=== PATIENT | female | born 1965 | race Caucasian/White ===

== ENCOUNTER 2017-07-23 11:09 | Inpatient (IN) | payer OTHER ==
[2017-07-23 12:55] VITALS: BMI 17.9
--- NOTE | 2017-07-23 13:50 | HP ---
COWS - Scale Resting Pulse: 0= [place] 80 or Below Sweatin= Chills/Flushing Restless Observation: 3= Extraneous Movement Pupil Size: 1= Pupils >than Normal Bone or Joint Aches: 2= Severe Diffuse Aches Runny Nose/ Eye Tearin= Runny Nose/Eyes GI Upset > 30mins: 3= Vomiting/Diarrhea Tremor Observation: 2= Slight Tremor Visible Yawning Observation: 2= >3x During Session Anxiety or Irritability: 2=Irritable/Anxious Goose Flesh Skin: 0=Smooth Skin COWS Score: 18 Admission ROS S - [facility] Chief Complaint: i need help to stop using heroin and cocaine Allergies/Adverse Reactions: Allergies Allergy/AdvReac Type Severity Reaction Status Date / Time No Known Allergies Allergy Verified 07/23/17 13:40 History of Present Illness: this 51 years old female with heroin and cocaine dependence,seeking detox, withdrawal symptom,last treatment 01/17/17 to 01/21/17 nicotine dependence hepatitis c treated weight loss anxiety,depression,insomnia longest period of sobriety 2 years - Ebola screening Have you traveled outside of the country in the last 21 days: No Have you had contact with anyone from an Ebola affected area: No Have you been sick,other than usual withdrawal symptoms: No Do you have a fever: No - Review of Systems Constitutional: Chills, Loss of Appetite, Malaise, Night Sweats, Changes in sleep, Weakness, Unintentional Wgt. Loss EENT: reports: Tearing, Hearing Loss, Nose Congestion Respiratory: reports: No Symptoms reported Cardiac: reports: No Symptoms Reported, Palpitations GI: reports: Diarrhea, Nausea, Vomiting, Abdominal cramping : reports: No Symptoms Reported Musculoskeletal: reports: Back Pain, Joint Pain, Muscle Pain, Joint Stiffness Integumentary: reports: Dryness Neuro: reports: Headache, Tremors Endocrine: reports: No Symptoms Reported Hematology: reports: No Symptoms Reported Psychiatric: reports: Judgement Intact, Mood/Affect Appropiate, Orientated x3, Anxious, Depressed Patient History - Patient Medical History Hx Anemia: No Hx Asthma: No Hx Chronic Obstructive Pulmonary Disease (COPD): No Hx Cancer: No Hx Cardiac Disorders: No Hx Congestive Heart Failure: No Hx Hypertension: No Hx Hypercholesterolemia: No Hx Pacemaker: No HX Cerebrovascular Accident: No Hx Seizures: No Hx Dementia: No Hx Diabetes: No Hx Gastrointestinal Disorders: No Hx Liver Disease: No Hx Genitourinary Disorders: No Hx Sexually Transmitted Disorders: No Hx Renal Disease (ESRD): No Hx Thyroid Disease: No Hx Human Immunodeficiency Virus (HIV): No (08/02 negative) Hx Hepatitis C: Yes (treated) Hx Depression: Yes (anxiety,insomnia) Hx Suicide Attempt: Yes (drug over dose) Hx Bipolar Disorder: No Hx Schizophrenia: No Other Medical History: no suicidal,no homicidal,s/p left hip replacement,s/p bilat arthroscopic schilling - Patient Surgical History Past Surgical History: Yes Hx Neurologic Surgery: No Hx Cataract Extraction: No Hx Cardiac Surgery: No Hx Lung Surgery: No Hx Breast Surgery: No Hx Breast Biopsy: No Hx Abdominal Surgery: No Hx Appendectomy: No Hx Cholecystectomy: No Hx Genitourinary Surgery: No Hx Section: No Hx Orthopedic Surgery: Yes (s/p left hip replacement) Hx Hysterectomy: Yes (age 31) Anesthesia Reaction: No - PPD History Previous Implant?: Yes Documented Results: Negative w/proof Implanted On Prior [facility] Admission?: Yes Date: 01/19/17 PPD to be Administered?: No - Reproductive History Patient is a Female of Child Bearing Age (11 -55 yrs old): Yes Last Menstrual Period: 01/17/97 Patient : No - Smoking Cessation Smoking history: Current every day smoker Have you smoked in the past 12 months: Yes Aproximately how many cigarettes per day: 10 Hx Chewing Tobacco Use: No Initiated information on smoking cessation: Yes 'Breaking Loose' booklet given: 07/23/17 - Substance & Tx. History Hx Alcohol Use: No Hx Substance Use: Yes Substance Use Type: Cocaine, Heroin Hx Substance Use Treatment: Yes ([facility] 01/17/17 to 01/21/17) - Substances Abused Heroin Route: Injection Frequency: Daily Amount used: 20 bags Age of first use: 16 Date of Last Use: 07/23/17 Cocaine Route: Injection Frequency: Daily Amount used: $100 Age of first use: 14 Date of Last Use: 07/22/17 Family Disease History - Family Disease History Family Disease History: Diabetes: Father (), Heart Disease: Father, CA: Mother (), Other: Father, Mother, Brother (no contact), Sister (no contact) Admission Physical Exam BHS - Vital Signs Vital Signs: Vital Signs - 24 hr 07/23/17 12:52 Temperature 97.9 F Pulse Rate 68 Respiratory 20 Rate Blood Pressure 130/70 - Physical General Appearance: Yes: Moderate Distress, Tremorous, Irritable, Sweating, Anxious HEENTM: Yes: Normal ENT Inspection, Normocephalic, KRISHAN, Pharynx Normal Respiratory: Yes: Lungs Clear, Normal Breath Sounds, No Respiratory Distress Neck: Yes: Within Normal Limits, Supple, Trachea in good position Breast: Yes: Within Normal Limits Cardiology: Yes: Within Normal Limits, Regular Rhythm, Regular Rate, S1, S2 Abdominal: Yes: Within Normal Limits, Normal Bowel Sounds, Flat, Soft Genitourinary: Yes: Within Normal Limits Back: Yes: Muscle Spasm Musculoskeletal: Yes: full range of Motion, Back pain, Muscle Pain Extremities: Yes: Tremors Neurological: Yes: 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 II-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 NML intact, Fully Oriented, Alert, Motor Strength 5/5 Integumentary: Yes: Dry, Track Clarke (multiple area of both forearmas with cellulitis) Lymphatic: Yes: Within Normal Limits - Diagnostic (1) Opioid dependence with withdrawal Current Visit: Yes Status: Acute (2) Cocaine dependence Current Visit: Yes Status: Acute (3) Nicotine dependence Current Visit: No Status: Chronic Qualifiers: Nicotine product type: cigarettes Substance use status: uncomplicated Qualified Code(s): F17.210 - Nicotine dependence, cigarettes, uncomplicated (4) IV drug user Current Visit: Yes Status: Acute (5) Weight loss Current Visit: No Status: Acute (6) Status post left hip replacement Current Visit: Yes Status: Acute (7) S/P arthroscopic knee surgery Current Visit: Yes Status: Acute (8) History of hysterectomy for cancer Current Visit: Yes Status: Acute (9) Insomnia secondary to depression with anxiety Current Visit: Yes Status: Acute Cleared for Admission [facility] - Detox or Rehab [facility] Level of Care: Medically Managed Detox Regimen/Protocol: Methadone [facility] Breath Alcohol Content Breath Alcohol Content: 0 Urine Pregancy Test - Result Urine Test Results: Negative- NO Line Present Urine Drug Screen - Results Drug Screen Negative: No Urine Drug Screen Results: AVE-Cocaine, OPI-Opiates
[2017-07-23] MEDS ORDERED: MAGNESIUM HYDROX 2400MG/30ML ORAL SUSPENSION 30 ML CUP PO PRN (14:14)
[2017-07-23] MEDS ORDERED: MAGNESIUM CITRATE 300 ML BOTTLE PO PRN (14:14)
[2017-07-23] MEDS ORDERED: IBUPROFEN 400 MG TABLET (FP) PO PRN (14:14)
[2017-07-23] MEDS ORDERED: guaiFENesin/D-METHORPHAN HB 10 ML UNIT-DOSE CUPS PO PRN (14:14)
[2017-07-23] MEDS ORDERED: MENTHOL/PHENOL 1 EACH UD MM PRN (14:14)
[2017-07-23] MEDS ORDERED: MAG HYDROX/AL HYDROX/SIMETH 30 ML UNIT-DOSE CUP PO PRN (14:14)
[2017-07-23] MEDS ORDERED: P-EPHED 60MG/TRIPROLIDI 2.5MG TABLET PO PRN (14:14)
[2017-07-23] MEDS ORDERED: LOPERAMIDE HCL 2 MG CAPSULE PO PRN (14:14)
[2017-07-23] MEDS ORDERED: ACETAMINOPHEN 325 MG TABLET (FP) PO PRN (14:14)
[2017-07-23] MEDS ORDERED: hydrOXYzine PAMOATE 25 MG CAPSULE (FP) PO PRN (14:14)
[2017-07-23] MEDS ORDERED: METHADONE HCL 10 MG TABLET (FOR DETOX USE ONLY) PO ONE ×2 (15:30→23:00)
[2017-07-23] MEDS: diazePAM 5 MG TABLET PO PRN ×2 (15:53→22:17)
[2017-07-23] MEDS: CEPHALEXIN MONOHYDRATE 500 MG CAPSULE (UD) PO SCH ×2 (17:32→23:19)
[2017-07-23] MEDS ORDERED: MELATONIN 5 MG TABLETS PO PRN (22:00)
[2017-07-23] MEDS: BACITRACIN 0.9 GM PACKET TP SCH (22:16)
[2017-07-23] MEDS: cloNIDine HCL 0.1 MG TABLET PO SCH (22:16)
[2017-07-23] MEDS: THIAMINE HCL 100 MG TABLET (FP) PO SCH (22:17)
[2017-07-23] MEDS: CYCLOBENZAPRINE HCL 10 MG TABLET (FP) PO PRN (22:17)
[2017-07-24] MEDS: CEPHALEXIN MONOHYDRATE 500 MG CAPSULE (UD) PO SCH ×4 (05:58→23:07)
[2017-07-24] MEDS: diazePAM 5 MG TABLET PO PRN ×3 (05:58→19:56)
[2017-07-24] MEDS ORDERED: VARENICLINE TARTRATE 0.5 MG TAB PO ONE (10:00)
[2017-07-24] MEDS ORDERED: METHADONE HCL 10 MG TABLET (FOR DETOX USE ONLY) PO ONE (10:00)
--- NOTE | 2017-07-24 10:13 | PN ---
BHS COWS - Scale Resting Pulse: 1= [place] 81-100 Sweatin= Chills/Flushing Restless Observation: 1= Difficult to Sit Still Pupil Size: 1= Pupils >than Normal Bone or Joint Aches: 2= Severe Diffuse Aches Runny Nose/ Eye Tearin= Runny Nose/Eyes GI Upset > 30mins: 2= Nausea/Diarrhea Tremor Observation of Outstretched Hands: 2= Slight Tremor Visible Yawning Observation: 2= >3x During Session Anxiety or Irritability: 2=Irritable/Anxious Goose Flesh Skin: 0=Smooth Skin COWS Score: 16 BHS Progress Note (SOAP) Subjective: joint pain body ache sweat tremor restlessness anxiety Objective: 07/24/17 10:13 Vital Signs Temperature 97.9 F 07/24/17 09:20 Pulse Rate 86 07/24/17 09:20 Respiratory Rate 18 07/24/17 09:20 Blood Pressure 125/74 07/24/17 09:20 O2 Sat by Pulse Oximetry (%) lab not available at this time Assessment: 07/24/17 10:14 withdrawal sx Plan: continue detox
[2017-07-24 10:34] LABS: HEMATOCRIT 31.4 % (32.4-45.2); HEMOGLOBIN 10.6 GM/dL (10.7-15.3); MCH 29.6 pg (25.7-33.7); MCHC 33.8 g/dl (32.0-36.0); MEAN CELL VOLUME 87.7 fl (80-96); MEAN PLT VOLUME 8.7 fl (7.5-11.1); PLATELET COUNT 238 K/MM3 (134-434); RBC 3.57 M/mm3 (3.60-5.2); RDW 13.2 % (11.6-15.6); WHITE BLOOD COUNT 4.4 K/mm3 (4.0-10.0)
[2017-07-24] MEDS: PRENATAL VITAMINS W/ FOLIC ACID TABLET (FP) PO SCH (10:43)
[2017-07-24] MEDS: BACITRACIN 0.9 GM PACKET TP SCH ×2 (10:43→22:27)
[2017-07-24] MEDS: cloNIDine HCL 0.1 MG TABLET PO SCH ×2 (10:43→22:27)
--- NOTE | 2017-07-24 11:34 | CONSULT ---
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 Smoking history: Current every day smoker. Have you smoked in the past 12 months: Yes. Aproximately how many cigarettes per day: 10. Hx Chewing Tobacco Use: No. Initiated information on smoking cessation: Yes. 'Breaking Loose' booklet given: 07/23/17. - Substance & Tx. History. Hx Alcohol Use: No. Hx Substance Use: Yes. Substance Use Type : Cocaine, Heroin. Hx Substance Use Treatment: Yes ([facility] 01/17/17 to 01/21/17) . - Substances Abused. Heroin. Route: Injection. Frequency: Daily. Amount used: 20 bags. Age of first use: 16. Date of Last Use: 07/23/17. Cocaine. Route: Injection. Frequency: Daily. Amount used: $100. Age of first use: 14. Date of Last Use: 07/22/17 Medical History: Denies any signifivant medical issues. As per chart Left Hip Replacement s/p Psychiatric History: Patient reports anixety and deprerssion. reports [facility]. Reports takijg prior to admission: Ambien 10mg po qhs'. Seroquerlm 150mg poqd Physical/Sexual Abuse/Trauma History: Denies Additional Comment: Ambien 10mg po qhs'. Seroquerlm 150mg poqd Mental Status Exam - Mental Status Exam Alert and Oriented to: Person Cognitive Function: Fair Patient Appearance: Unkempt Mood: Sad Affect: Flat Patient Behavior: Sedated Speech Pattern: Delayed Voice Loudness: Mildly Soft/Quiet Thought Process: Circumstantial Thought Disorder: Being Controlled Hallucinations: Denies Suicidal Ideation: Denies Homicidal Ideation: Denies Insight/Judgement: Fair Sleep: Difficulty falling asleep Appetite: Weight loss Muscle strength/Tone: Mild Hypotonicity Gait/Station: Shuffling Additional Comments: Ambien 10mg po qhs'. Seroquerlm 150mg poqd Psychiatric Findings - Problem List ([place] 1, 2,3) (1) Cocaine dependence Current Visit: Yes Status: Acute (2) IV drug user Current Visit: Yes Status: Acute (3) Opioid dependence with withdrawal Current Visit: Yes Status: Acute (4) Weight loss Current Visit: No Status: Acute (5) Cocaine dependence, uncomplicated Current Visit: No Status: Chronic (6) Methadone maintenance therapy patient Current Visit: No Status: Chronic Comment: 130 mg verification pending (7) Nicotine dependence Current Visit: No Status: Chronic Qualifiers: Nicotine product type: cigarettes Substance use status: uncomplicated Qualified Code(s): F17.210 - Nicotine dependence, cigarettes, uncomplicated - Initial Treatment Plan Initial Treatment Plan: Ambien 10mg po qhs'. Seroquerlm 150mg poqd
[2017-07-24 11:35] LABS: ALBUMIN 3.4 g/dl (3.4-5.0); ANION GAP 8 (8-16); BLOOD UREA NITROGEN 17 mg/dL (7-18); CALCIUM 8.3 mg/dL (8.5-10.1); CHLORIDE 107 mmol/L (98-107); CO2 28 mmol/L (21-32); GLUCOSE,RANDOM 149 mg/dL (74-106); SODIUM 143 mmol/L (136-145)
[2017-07-24 11:41] LABS: ALK PHOS 83 U/L (45-117); BILIRUBIN,TOTAL 0.2 mg/dL (0.2-1.0); CREATININE 0.8 mg/dL (0.55-1.02); SGOT/AST 15 U/L (15-37); SGPT/ALT 15 U/L (12-78)
[2017-07-24] MEDS: QUEtiapine FUMARATE 50 MG TABLET PO SCH (13:10)
--- NOTE | 2017-07-24 14:00 | EKG ---
Test Reason : Blood Pressure : / mmHG Vent. Rate : 061 BPM Atrial Rate : 061 BPM P-R Int : 134 ms QRS Dur : 080 ms QT Int : 458 ms P-R-T Axes : 062 070 064 degrees QTc Int : 461 ms NORMAL SINUS RHYTHM NORMAL ECG WHEN COMPARED WITH ECG OF 17-JAN-2017 21:32, VT INTERVAL HAS INCREASED Confirmed by JAIRO OLIVAREZ, ALISHA ([id number]) on 07/24/2017 1:59:57 PM Referred By: Confirmed By:ALISHA GILL MD
[2017-07-24] MEDS: ZOLPIDEM TARTRATE 10 MG TABLET (PARK CARE ONLY) PO PRN (22:27)
[2017-07-24] MEDS: CYCLOBENZAPRINE HCL 10 MG TABLET (FP) PO PRN (22:27)
[2017-07-24] MEDS: THIAMINE HCL 100 MG TABLET (FP) PO SCH (22:27)
[2017-07-25] MEDS: diazePAM 5 MG TABLET PO PRN ×5 (00:39→22:17)
[2017-07-25] MEDS: CEPHALEXIN MONOHYDRATE 500 MG CAPSULE (UD) PO SCH ×4 (06:03→23:01)
[2017-07-25] MEDS ORDERED: METHADONE HCL 5 MG TABLET (FOR DETOX USE ONLY) PO ONE (10:00)
[2017-07-25] MEDS: QUEtiapine FUMARATE 50 MG TABLET PO SCH (10:25)
[2017-07-25] MEDS: cloNIDine HCL 0.1 MG TABLET PO SCH ×2 (10:25→22:18)
[2017-07-25] MEDS: BACITRACIN 0.9 GM PACKET TP SCH ×2 (10:25→22:18)
[2017-07-25] MEDS: VARENICLINE TARTRATE 0.5 MG TAB PO SCH ×2 (10:25→22:19)
[2017-07-25] MEDS: PRENATAL VITAMINS W/ FOLIC ACID TABLET (FP) PO SCH (10:25)
--- NOTE | 2017-07-25 13:05 | PN ---
S COWS - Scale Resting Pulse: 0= [place] 80 or Below Sweatin= Chills/Flushing Restless Observation: 1= Difficult to Sit Still Pupil Size: 1= Pupils >than Normal Bone or Joint Aches: 1= Mild Discomfort Runny Nose/ Eye Tearin= Nasal Congestion GI Upset > 30mins: 1= Stomach Cramp Tremor Observation of Outstretched Hands: 2= Slight Tremor Visible Yawning Observation: 2= >3x During Session Anxiety or Irritability: 2=Irritable/Anxious Goose Flesh Skin: 0=Smooth Skin COWS Score: 12 S Progress Note (SOAP) Subjective: feeling good today that detox regimen works well able to sleep throughout the night mild tremor less sweat prefer to begin recovery process earlier Objective: 07/25/17 13:04 Vital Signs Temperature 98.2 F 07/25/17 09:33 Pulse Rate 88 07/25/17 09:33 Respiratory Rate 16 07/25/17 09:33 Blood Pressure 105/69 07/25/17 09:33 O2 Sat by Pulse Oximetry (%) Laboratory Last Values WBC 4.4 K/mm3 (4.0-10.0) 07/24/17 06:00 RBC 3.57 M/mm3 (3.60-5.2) L 07/24/17 06:00 Hgb 10.6 GM/dL (10.7-15.3) L D 07/24/17 06:00 Hct 31.4 % (32.4-45.2) L 07/24/17 06:00 MCV 87.7 fl (80-96) 07/24/17 06:00 MCH 29.6 pg (25.7-33.7) 07/24/17 06:00 MCHC 33.8 g/dl (32.0-36.0) 07/24/17 06:00 RDW 13.2 % (11.6-15.6) 07/24/17 06:00 Plt Count 238 K/MM3 (134-434) 07/24/17 06:00 MPV 8.7 fl (7.5-11.1) D 07/24/17 06:00 Sodium 143 mmol/L (136-145) 07/24/17 06:00 Potassium 4.0 mmol/L (3.5-5.1) 07/24/17 06:00 Chloride 107 mmol/L (98-107) 07/24/17 06:00 Carbon Dioxide 28 mmol/L (21-32) 07/24/17 06:00 Anion Gap 8 (8-16) 07/24/17 06:00 BUN 17 mg/dL (7-18) 07/24/17 06:00 Creatinine 0.8 mg/dL (0.55-1.02) 07/24/17 06:00 Creat Clearance w eGFR > 60 (>60) 07/24/17 06:00 Random Glucose 149 mg/dL (74-106) H 07/24/17 06:00 Calcium 8.3 mg/dL (8.5-10.1) L 07/24/17 06:00 Total Bilirubin 0.2 mg/dL (0.2-1.0) 07/24/17 06:00 AST 15 U/L (15-37) 07/24/17 06:00 ALT 15 U/L (12-78) 07/24/17 06:00 Alkaline Phosphatase 83 U/L (45-117) 07/24/17 06:00 Total Protein 7.0 g/dl (6.4-8.2) 07/24/17 06:00 Albumin 3.4 g/dl (3.4-5.0) 07/24/17 06:00 RPR Titer Nonreactive (NONREACTIVE) 07/24/17 06:00 lab noted 07/25/17 13:05 alert oriented x 3 no acute distress Assessment: 07/25/17 13:04 withdrawal sx 07/25/17 13:05 modify opioid detox regimen Plan: continue detox tailored opioid detox regimen as per patient preference
[2017-07-25] MEDS: CYCLOBENZAPRINE HCL 10 MG TABLET (FP) PO PRN (22:17)
[2017-07-25] MEDS: THIAMINE HCL 100 MG TABLET (FP) PO SCH (22:17)
[2017-07-25] MEDS: ZOLPIDEM TARTRATE 10 MG TABLET (PARK CARE ONLY) PO PRN (22:18)
[2017-07-26] MEDS: diazePAM 5 MG TABLET PO PRN (02:42)
[2017-07-26] MEDS: CEPHALEXIN MONOHYDRATE 500 MG CAPSULE (UD) PO SCH (05:51)
[2017-07-26 09:27] VITALS: BP 130/77; PULSE 104; TEMP 95.8
[2017-07-26] MEDS ORDERED: METHADONE HCL 10 MG TABLET (FOR DETOX USE ONLY) PO ONE (10:00)
[2017-07-26] MEDS ORDERED: METHADONE HCL 5 MG TABLET (FOR DETOX USE ONLY) PO ONE (10:00)
[2017-07-26] MEDS: BACITRACIN 0.9 GM PACKET TP SCH (11:19)
[2017-07-26] MEDS: cloNIDine HCL 0.1 MG TABLET PO SCH (11:19)
[2017-07-26] MEDS: QUEtiapine FUMARATE 50 MG TABLET PO SCH (11:20)
[2017-07-26] MEDS: PRENATAL VITAMINS W/ FOLIC ACID TABLET (FP) PO SCH (11:20)
[2017-07-26] MEDS: VARENICLINE TARTRATE 0.5 MG TAB PO SCH (11:20)
--- NOTE | 2017-07-26 12:26 | DS ---
[facility] Detox Discharge Summary Admission Date: 07/23/17 Discharge Date: 07/26/17 - History Present History: Opioid Dependence Additional Comments: 51 years old female admitted 07/23/17 for opioid withdrawal sx insists to terminate the detox regimen wants to leave the detox facility alert oriented x 3 no acute distress health teaching on addiction and recovery process - Physical Exam Results Vital Signs: Vital Signs Temperature 95.8 F L 07/26/17 09:26 Pulse Rate 104 H 07/26/17 09:26 Respiratory Rate 18 07/26/17 09:26 Blood Pressure 130/77 07/26/17 09:26 O2 Sat by Pulse Oximetry (%) Pertinent Admission Physical Exam Findings: withdrawal sx Vital Signs Temperature 95.8 F L 07/26/17 09:26 Pulse Rate 104 H 07/26/17 09:26 Respiratory Rate 18 07/26/17 09:26 Blood Pressure 130/77 07/26/17 09:26 O2 Sat by Pulse Oximetry (%) Laboratory Last Values WBC 4.4 K/mm3 (4.0-10.0) 07/24/17 06:00 RBC 3.57 M/mm3 (3.60-5.2) L 07/24/17 06:00 Hgb 10.6 GM/dL (10.7-15.3) L D 07/24/17 06:00 Hct 31.4 % (32.4-45.2) L 07/24/17 06:00 MCV 87.7 fl (80-96) 07/24/17 06:00 MCH 29.6 pg (25.7-33.7) 07/24/17 06:00 MCHC 33.8 g/dl (32.0-36.0) 07/24/17 06:00 RDW 13.2 % (11.6-15.6) 07/24/17 06:00 Plt Count 238 K/MM3 (134-434) 07/24/17 06:00 MPV 8.7 fl (7.5-11.1) D 07/24/17 06:00 Sodium 143 mmol/L (136-145) 07/24/17 06:00 Potassium 4.0 mmol/L (3.5-5.1) 07/24/17 06:00 Chloride 107 mmol/L (98-107) 07/24/17 06:00 Carbon Dioxide 28 mmol/L (21-32) 07/24/17 06:00 Anion Gap 8 (8-16) 07/24/17 06:00 BUN 17 mg/dL (7-18) 07/24/17 06:00 Creatinine 0.8 mg/dL (0.55-1.02) 07/24/17 06:00 Creat Clearance w eGFR > 60 (>60) 07/24/17 06:00 Random Glucose 149 mg/dL (74-106) H 07/24/17 06:00 Calcium 8.3 mg/dL (8.5-10.1) L 07/24/17 06:00 Total Bilirubin 0.2 mg/dL (0.2-1.0) 07/24/17 06:00 AST 15 U/L (15-37) 07/24/17 06:00 ALT 15 U/L (12-78) 07/24/17 06:00 Alkaline Phosphatase 83 U/L (45-117) 07/24/17 06:00 Total Protein 7.0 g/dl (6.4-8.2) 07/24/17 06:00 Albumin 3.4 g/dl (3.4-5.0) 07/24/17 06:00 RPR Titer Nonreactive (NONREACTIVE) 07/24/17 06:00 lab noted - Treatment Hospital Course: Detox Protocol Followed, Responded well Patient has Accepted a Rehab Referral to: community self help groups - Medication Discharge Medications: Ambulatory Orders Varenicline Tartrate [Chantix -] 0.5 mg PO DAILY 07/23/17 Zolpidem Tartrate [Ambien] 10 mg PO HS 07/23/17 Quetiapine Fumarate "Xr" [Seroquel Xr -] 150 mg PO DAILY #30 tab 07/24/17 - Diagnosis (1) Alcohol dependence with uncomplicated withdrawal Status: Acute - AMA Did Patient Leave Against Medical Advice: Yes
[2017-07-27] MEDS ORDERED: METHADONE HCL 10 MG TABLET (FOR DETOX USE ONLY) PO ONE ×2 (06:00→10:00)
[2017-07-28] MEDS ORDERED: METHADONE HCL 5 MG TABLET (FOR DETOX USE ONLY) PO ONE (06:00)
== END 2017-07-26 10:15 | disposition left against medical advice (07) | DRG 770 ==
LOC: YASAS 11:09 → Y6N 14:59
PROVIDERS: ADMIT Surgery; ATTEND Surgery
PROC: HZ2ZZZZ Detoxification Services for Substance Abuse Treatment (ICD-10-PCS; principal; 2017-07-23)
DX: F11.23 Opioid dependence with withdrawal (principal); F10.230 Alcohol dependence with withdrawal, uncomplicated; F14.20 Cocaine dependence, uncomplicated; F17.210 Nicotine dependence, cigarettes, uncomplicated; F51.05 Insomnia due to other mental disorder; F32.9 Major depressive disorder, single episode, unspecified; R63.4 Abnormal weight loss; Z68.1 Body mass index [BMI] 19.9 or less, adult; Z96.642 Presence of left artificial hip joint; Z91.5 Personal history of self-harm
CPT/HCPCS: 36415; 80053; 85027; 86593; 93005; 93010; J0735

== ENCOUNTER 2018-08-25 12:25 | Inpatient (IN) | payer OTHER ==
[2018-08-25 14:58] VITALS: BMI 17.7
--- NOTE | 2018-08-25 17:08 | HP ---
"COWS - Scale Resting Pulse: 0= IN 80 or Below Sweatin=Flushed/Facial Moisture Restless Observation: 3= Extraneous Movement Pupil Size: 2= Moderately Dilated (Pupils = 4 mm) Bone or Joint Aches: 0= None Runny Nose/ Eye Tearin= Nasal Congestion GI Upset > 30mins: 2= Nausea/Diarrhea Tremor Observation: 2= Slight Tremor Visible Yawning Observation: 0= None Anxiety or Irritability: 2=Irritable/Anxious Goose Flesh Skin: 0=Smooth Skin COWS Score: 14 CIWA Score Nausea/Vomitin Muscle Tremors: 3 Anxiety: 3 Agitation: 3 Paroxysmal Sweats: 3 (Increased facial moisture) Orientation: 0-Oriented Tacttile Disturbances: 0-None Auditory Disturbances: 0-None Visual Disturbances: 0-None Headache: 0-None Present CIWA-Ar Total Score: 15 - Admission Criteria [facility] Guidelines: Admission for Medically Managed Detox: Requires at least one of the followin. CIWA greater than 12 2. Seizures within the past 24 hours 3. Delirium tremens within the past 24 hours 4. Hallucinations within the past 24 hours 5. Acute intervention needed for co occurring medical disorder 6. Acute intervention needed for co occurring psychiatric disorder 7. Severe withdrawal that cannot be handled at a lower level of care (continued vomiting, continued diarrhea, abnormal vital signs) requiring intravenous medication and/or fluids 8. Patient presents the following: CIWA greater than 12 Admission Criteria Met: Admission criteria met Admission [facility] Chief Complaint: Having withdrawal from alcohol and heroin Allergies/Adverse Reactions: Allergies Allergy/AdvReac Type Severity Reaction Status Date / Time No Known Allergies Allergy Verified 08/25/18 14:45 History of Present Illness: 52 yor with heroin and alcohol withdrawal presents for detox. Heroin use began at age 15. States current use x 1 year. IV. Denies sharing needles or works. Alcohol use began at age 15. States dfriks about 1 pint and 3 beers about 3x/ wk. Cocaine use began at age 15. IVDU Denies blackouts, overdoses. Has a Narcan Kit @ home. Wants to be discharged by Saturday. Given the amount of substance use and the presence of cellulits, the recommendation is that patient stay at least 6 days. PMHx: Denies significant PMH EKG @ [facility]: 04/05/17 wnl. MHHx: Anxious, Insomnia, Depression. Denies thoughts of harming self or others. On meds - Seroquel Longest length of sobriety 2 years. Search Terms: Sofía Dejesus, 1965 Search Date: 08/25/2018 05:05:31 PM The Drug Utilization Report below displays all of the controlled substance prescriptions, if any, that your patient has filled in the last twelve months. The information displayed on this report is compiled from pharmacy submissions to the Department, and accurately reflects the information as submitted by the pharmacies. This report was requested by: Sarah Beth Chang | Reference #: [id number] There are no results for the search terms that you entered. Search Terms: Sofía Dejesus, 1965 Search Date: 08/25/2018 05:08:35 PM States Searched: [place], [place], [place], [place], [place], [place], [place], [place], [place] The Drug Utilization Report below displays the controlled substance prescriptions, if any, that were dispensed in the indicated state(s). The information displayed on this report is compiled from requests submitted to other states' PMPs, and accurately reflects the information as returned by them. Blank saleh indicate data not provided by other state. This report was requested by: Sarah Beth Chang | Reference #: [id number] Exam Limitations: No Limitations - Ebola screening Have you traveled outside of the country in the last 21 days: No (N) Have you had contact with anyone from an Ebola affected area: No Have you been sick,other than usual withdrawal symptoms: Yes (Denies recent exposure to measles) Do you have a fever: No - Review of Systems Constitutional: Chills, Diaphoresis (Increased facial moisture), Changes in sleep (Diffculty falling and staying asleep) EENT: reports: Blurred Vision, Hearing Loss (Decreased hearing in both ears) Respiratory: reports: No Symptoms reported Cardiac: reports: No Symptoms Reported GI: reports: Nausea : reports: No Symptoms Reported Musculoskeletal: denies: No Symptoms Reported (r/t) Integumentary: reports: Lesions (on arms and legs from shooting cocaine) Neuro: reports: Tremors Endocrine: reports: No Symptoms Reported Hematology: reports: Anemia (Iron Deficiencey) Psychiatric: reports: Judgement Intact, Orientated x3, Agitated, Anxious, Depressed (Denies thoughts of harming self or others) Patient History - Patient Medical History Hx Anemia: No Hx Asthma: No Hx Chronic Obstructive Pulmonary Disease (COPD): No Hx Cancer: No Hx Cardiac Disorders: No Hx Congestive Heart Failure: No Hx Hypertension: No Hx Hypercholesterolemia: No Hx Pacemaker: No HX Cerebrovascular Accident: No Hx Seizures: No Hx Dementia: No Hx Diabetes: No Hx Gastrointestinal Disorders: No Hx Liver Disease: No Hx Genitourinary Disorders: No Hx Sexually Transmitted Disorders: No Hx Renal Disease (ESRD): No Hx Thyroid Disease: No Hx Human Immunodeficiency Virus (HIV): No (08/02 negative) Hx Hepatitis C: Yes (treated) Hx Depression: Yes (anxiety,insomnia) Hx Suicide Attempt: Yes (drug over dose) Hx Bipolar Disorder: No Hx Schizophrenia: No - Patient Surgical History Past Surgical History: Yes Hx Neurologic Surgery: No Hx Cataract Extraction: No Hx Cardiac Surgery: No Hx Lung Surgery: No Hx Breast Surgery: No Hx Breast Biopsy: No Hx Abdominal Surgery: No Hx Appendectomy: No Hx Cholecystectomy: No Hx Genitourinary Surgery: No Hx Section: No Hx Orthopedic Surgery: Yes (s/p left hip replacement) Hx Hysterectomy: Yes (age 31 cancer of cervix ) Other Surgical History: bilateral arthroscopy both knees Anesthesia Reaction: No - PPD History Previous Implant?: Yes Documented Results: Negative w/proof Implanted On Prior R Admission?: Yes Date: 01/19/17 Results: negative PPD to be Administered?: Yes - Reproductive History Last Menstrual Period: 01/17/97 - Smoking Cessation Smoking history: Current every day smoker Have you smoked in the past 12 months: Yes Aproximately how many cigarettes per day: 10 Hx Chewing Tobacco Use: No Initiated information on smoking cessation: Yes 'Breaking Loose' booklet given: 08/25/18 - Substance & Tx. History Hx Alcohol Use: Yes Hx Substance Use: Yes Substance Use Type: Alcohol, Heroin, Opiates Hx Substance Use Treatment: Yes (detox, rehab) - Substances abused Heroin Substance route: Injection Frequency: Daily Amount used: 25 bags/day Age of first use: 15 Date of last use: 08/25/18 Cocaine Substance route: Injection Frequency: Daily Amount used: 25 bags /day Age of first use: 15 Date of last use: 08/25/18 Alcohol Substance route: Oral Frequency: 3-6 times per week Amount used: 3 12 ounces of beer daily Age of first use: 15 Date of last use: 08/24/18 Family Disease History - Family Disease History Family Disease History: Diabetes: Father (), Heart Disease: Father, CA: Mother (), Other: Father, Mother, Brother (no contact), Sister (no contact) Admission Physical Exam [facility] - Vital Signs Vital Signs: Vital Signs - 24 hr 08/25/18 14:50 Temperature 97.9 F Pulse Rate 70 Respiratory 18 Rate Blood Pressure 110/70 - Physical General Appearance: Yes: Mild Distress, Thin, Tremorous (Slight tremors), Sweating (Increased facial moisture), Anxious HEENTM: Yes: EOMI, Hearing grossly Normal, Normocephalic, Normal Voice, KRISHAN ( Pupils = 4 mm), Pharynx Normal, Nasal Congestion, Rhinorrhea Respiratory: Yes: Lungs Clear, Normal Breath Sounds, No Respiratory Distress Neck: Yes: No masses,lesions,Nodules, Supple Breast: Yes: Breast Exam Deferred Cardiology: Yes: Regular Rhythm, Regular Rate, S1, S2 Abdominal: Yes: Non Tender, Flat, Soft, Increased Bowel Sounds Genitourinary: Yes: Within Normal Limits Back: Yes: Normal Inspection Musculoskeletal: Yes: full range of Motion, Gait Steady Extremities: Yes: Normal Capillary Refill, Normal Range of Motion, Tremors ( Mild tremors) Neurological: Yes: chemical dependency therapist II-XII NML intact, Fully Oriented, Alert, Motor Strength 5/5 Integumentary: Yes: Normal Color, Warm, Track Clarke (Many olOld and new track clarke arms and legs. Several track julian sites on arms and legs w/ increased warmth, erythema and tenderness.), Other (Area of induration 10 cm x 8 cm (R) thigh area, w/ increased warmth, erythema, and tenderness.) Lymphatic: Yes: Within Normal Limits - Diagnostic (1) Underweight Current Visit: Yes Status: Chronic (2) Alcohol dependence with uncomplicated withdrawal Current Visit: Yes Status: Acute (3) Cellulitis Current Visit: Yes Status: Acute Qualifiers: Site of cellulitis: unspecified site Qualified Code(s): L03.90 - Cellulitis , unspecified (4) Cocaine dependence Current Visit: Yes Status: Chronic Qualifiers: Substance use status: uncomplicated Qualified Code(s): F14.20 - Cocaine dependence, uncomplicated (5) IV drug user Current Visit: Yes Status: Chronic (6) Nicotine dependence Current Visit: Yes Status: Chronic Qualifiers: Nicotine product type: cigarettes Substance use status: in withdrawal Qualified Code(s): F17.213 - Nicotine dependence, cigarettes, with withdrawal (7) Opioid dependence with withdrawal Current Visit: Yes Status: Acute Cleared for Admission [facility] - Detox or Rehab [facility] Level of Care: Medically Managed Detox Regimen/Protocol: Methadone/Librium Claeared for Rehab Admission: No Inpatient Rehab Admission - Rehab Decision to Admit Inpatient rehab admission?: No"
[2018-08-25] MEDS ORDERED: cloNIDine HCL 0.1 MG TABLET PO PRN (17:37)
[2018-08-25] MEDS ORDERED: NALOXONE HCL 0.4 MG/ML VIAL IVPUSH PRN (17:37)
[2018-08-25] MEDS ORDERED: MAGNESIUM HYDROX 2400MG/30ML ORAL SUSPENSION 30 ML CUP PO PRN (17:41)
[2018-08-25] MEDS ORDERED: MAGNESIUM CITRATE 300 ML BOTTLE PO PRN (17:41)
[2018-08-25] MEDS ORDERED: MELATONIN 5 MG TABLETS PO PRN (17:41)
[2018-08-25] MEDS ORDERED: MENTHOL/PHENOL 1 EACH UD MM PRN (17:41)
[2018-08-25] MEDS ORDERED: IBUPROFEN 400 MG TABLET (FP) PO PRN (17:41)
[2018-08-25] MEDS ORDERED: chlordiazePOXIDE HCL 10 MG CAPSULE PO PRN (17:41)
[2018-08-25] MEDS ORDERED: ACETAMINOPHEN 325 MG TABLET (FP) PO PRN ×2 (17:41)
[2018-08-25] MEDS ORDERED: BISMUTH SUBSALICYLATE 524 MG/30 ML UD PO PRN (17:41)
[2018-08-25] MEDS ORDERED: MAG HYDROX/AL HYDROX/SIMETH 30 ML UNIT-DOSE CUP PO PRN (17:41)
[2018-08-25] MEDS ORDERED: NICOTINE POLACRILEX 2 MG GUM BUC PRN (17:41)
[2018-08-25] MEDS ORDERED: METHADONE HCL 10 MG TABLET (FOR DETOX USE ONLY) PO ONE ×2 (18:00→23:00)
[2018-08-25] MEDS: CEPHALEXIN MONOHYDRATE 500 MG CAPSULE (UD) PO SCH (19:24)
[2018-08-25] MEDS: chlordiazePOXIDE HCL 25 MG CAPSULE PO SCH (22:43)
[2018-08-25] MEDS: THIAMINE HCL 100 MG TABLET (FP) PO SCH (22:47)
[2018-08-26] MEDS: chlordiazePOXIDE HCL 25 MG CAPSULE PO SCH ×2 (05:51→15:17)
[2018-08-26] MEDS: CEPHALEXIN MONOHYDRATE 500 MG CAPSULE (UD) PO SCH ×4 (06:32→17:23)
[2018-08-26] MEDS ORDERED: NICOTINE 14 MG/24 HOURS TOPICAL PATCH TD SCH (10:00)
[2018-08-26] MEDS ORDERED: PRENATAL VITAMINS W/ FOLIC ACID TABLET (FP) PO SCH (10:00)
[2018-08-26] MEDS ORDERED: METHADONE HCL 10 MG TABLET (FOR DETOX USE ONLY) PO ONE ×2 (10:00)
[2018-08-26 10:19] LABS: HEMATOCRIT 36.6 % (32.4-45.2); HEMOGLOBIN 12.4 GM/dL (10.7-15.3); MCH 30.3 pg (25.7-33.7); MCHC 33.8 g/dl (32.0-36.0); MEAN CELL VOLUME 89.6 fl (80-96); MEAN PLT VOLUME 7.6 fl (7.5-11.1); PLATELET COUNT 224 K/MM3 (134-434); RBC 4.09 M/mm3 (3.60-5.2); WHITE BLOOD COUNT 5.1 K/mm3 (4.0-10.0)
[2018-08-26 10:54] LABS: ALBUMIN 3.3 g/dl (3.4-5.0); BILIRUBIN,TOTAL 0.4 mg/dL (0.2-1); CALCIUM 8.7 mg/dL (8.5-10.1); CREATININE 0.7 mg/dL (0.55-1.3); POTASSIUM 4.2 mmol/L (3.5-5.1); TOT PROT 6.9 g/dl (6.4-8.2)
--- NOTE | 2018-08-26 11:36 | PN ---
[facility] CIWA - CIWA Score Nausea/Vomitin-No Nausea/No Vomiting Muscle Tremors: 4-Moderate,w/Arms Extend Anxiety: 3 Agitation: 3 Paroxysmal Sweats: 3 Orientation: 0-Oriented Tacttile Disturbances: 0-None Auditory Disturbances: 0-None Visual Disturbances: 0-None Headache: 0-None Present CIWA-Ar Total Score: 13 [facility] COWS - Scale Resting Pulse: 1= IN 81-100 Sweatin= No chills or Flushing Restless Observation: 1= Difficult to Sit Still Pupil Size: 0= Normal to Room Light Bone or Joint Aches: 2= Severe Diffuse Aches Runny Nose/ Eye Tearin= Runny Nose/Eyes GI Upset > 30mins: 0= None Tremor Observation of Outstretched Hands: 1= Tremor Thelma, Not Seen Yawning Observation: 1= 1-2x During Session Anxiety or Irritability: 2=Irritable/Anxious Goose Flesh Skin: 3=Piloerection COWS Score: 13 [facility] Progress Note (SOAP) Subjective: chills sweats interrupted sleep body aches I need to leave by saturday; i have a job to go to and needs to be there. I am feeling better today that I did yesterday. Objective: 08/26/18 11:33 Vital Signs Temperature 98.2 F 08/26/18 10:13 Pulse Rate 81 08/26/18 10:13 Respiratory Rate 16 08/26/18 10:13 Blood Pressure 127/93 08/26/18 10:13 O2 Sat by Pulse Oximetry (%) Laboratory Tests 08/26/18 08/26/18 07:00 07:00 WBC 5.1 RBC 4.09 Hgb 12.4 Hct 36.6 MCV 89.6 MCH 30.3 MCHC 33.8 RDW 13.0 D Plt Count 224 MPV 7.6 D Sodium 143 Potassium 4.2 Chloride 109 H Carbon Dioxide 32 Anion Gap 2 L BUN 17.0 Creatinine 0.7 Est GFR (CKD-EPI)AfAm 115.45 Est GFR (CKD-EPI)NonAf 99.62 Random Glucose 120 H Calcium 8.7 Total Bilirubin 0.4 AST 15 ALT 16 Alkaline Phosphatase 76 Total Protein 6.9 Albumin 3.3 L labs pending aaox3 ambulating no acute distress Assessment: 08/26/18 11:34 withdrawal sx Plan: reviewed the regimen that was originally placed and d/c to apply the regimen that is currently approved by the medical board. pt in agreement with set detox protocol regimen and very content because she will be d/c on saturday as per her request. therefore to continue with currently placed regimen increase fluids
--- NOTE | 2018-08-26 14:15 | PN ---
[facility] Progress Note Note: Patient was approached twice at bedside for interview and both time, told sheet writer that she was sick. The first time, sheet writer tried to interview her at bedtime since she had no roomate. She became irritable but my questioning, she started yelling. Business Solution Analyst left the room. She came into the office to continue yelling at sheet writer. She was told she could be interview when she is calm and cooperative. Told sheet writer that she is planning on calling [employer] to report him and asked sheet writer information to do so. The second time, she told sheet writer that she could not talk now because she was still sick. Business Solution Analyst told her to have him called by nursing staff when she is available. Business Solution Analyst left on her bedside table the information she requested and left the room.
[2018-08-26] MEDS: chlordiazePOXIDE 5 MG CAPSULE PO SCH (23:02)
[2018-08-26] MEDS: THIAMINE HCL 100 MG TABLET (FP) PO SCH (23:03)
[2018-08-27] MEDS: CEPHALEXIN MONOHYDRATE 500 MG CAPSULE (UD) PO SCH (05:34)
[2018-08-27] MEDS: chlordiazePOXIDE 5 MG CAPSULE PO SCH (05:36)
[2018-08-27 08:25] VITALS: BP 128/77; PULSE 57; TEMP 97.9
--- NOTE | 2018-08-27 08:37 | PN ---
[facility] Progress Note Note: pt came to nursing desk stating she wants to leave due to issues with her job after making a phone call. Pt was asked if there was anything that staff can do to assist so she can complete her detox; pt insisted she needs to leave and was told this will be AMA. pt did not care and wants to leave. Pt signed out AMA.
--- NOTE | 2018-08-27 08:38 | DS ---
[facility] Detox Discharge Summary Admission Date: 08/25/18 - History Present History: Alcohol Dependence, Cocaine Dependence, Opioid Dependence - Physical Exam Results Vital Signs: Vital Signs Temperature 97.9 F 08/27/18 08:24 Pulse Rate 57 L 08/27/18 08:24 Respiratory Rate 18 08/27/18 08:24 Blood Pressure 128/77 08/27/18 08:24 O2 Sat by Pulse Oximetry (%) - Treatment Hospital Course: Discharged Condition Good - Medication Discharge Medications: Ambulatory Orders Zolpidem Tartrate [Ambien] 10 mg PO HS 07/23/17 Quetiapine Fumarate "Xr" [Seroquel XR] 150 mg PO TID 08/25/18 - Diagnosis (1) Alcohol dependence with uncomplicated withdrawal Current Visit: Yes Status: Chronic (2) Cellulitis Current Visit: Yes Status: Acute Qualifiers: Site of cellulitis: unspecified site Qualified Code(s): L03.90 - Cellulitis , unspecified (3) Opioid dependence with withdrawal Current Visit: Yes Status: Chronic (4) Cocaine dependence Current Visit: Yes Status: Chronic Qualifiers: Substance use status: uncomplicated Qualified Code(s): F14.20 - Cocaine dependence, uncomplicated (5) IV drug user Current Visit: Yes Status: Chronic (6) Nicotine dependence Current Visit: Yes Status: Chronic Qualifiers: Nicotine product type: cigarettes Substance use status: uncomplicated Qualified Code(s): F17.210 - Nicotine dependence, cigarettes, uncomplicated (7) Underweight Current Visit: Yes Status: Chronic (8) History of hysterectomy for cancer Current Visit: No Status: Acute (9) Insomnia secondary to depression with anxiety Current Visit: No Status: Acute (10) S/P arthroscopic knee surgery Current Visit: No Status: Acute (11) Status post left hip replacement Current Visit: No Status: Acute (12) Weight loss Current Visit: No Status: Acute (13) Cocaine dependence, uncomplicated Current Visit: Yes Status: Chronic - AMA Did Patient Leave Against Medical Advice: Yes (declined aftercare. referral provided to pt)
[2018-08-27] MEDS ORDERED: METHADONE (DETOX) 20 MG, METHADONE (DETOX) 5 MG PO ONE (10:00)
[2018-08-27] MEDS ORDERED: METHADONE HCL 10 MG TABLET (FOR DETOX USE ONLY) PO ONE (10:00)
[2018-08-27] MEDS ORDERED: chlordiazePOXIDE HCL 10 MG CAPSULE PO PRN (21:00)
[2018-08-27] MEDS ORDERED: chlordiazePOXIDE HCL 10 MG CAPSULE PO SCH (21:00)
[2018-08-28] MEDS ORDERED: METHADONE HCL 10 MG TABLET (FOR DETOX USE ONLY) PO ONE ×2 (10:00)
[2018-08-29] MEDS ORDERED: METHADONE HCL 5 MG TABLET (FOR DETOX USE ONLY) PO ONE ×2 (06:00→10:00)
[2018-08-30] MEDS ORDERED: METHADONE HCL 10 MG TABLET (FOR DETOX USE ONLY) PO ONE (10:00)
[2018-08-31] MEDS ORDERED: METHADONE HCL 5 MG TABLET (FOR DETOX USE ONLY) PO ONE (06:00)
== END 2018-08-27 09:08 | disposition left against medical advice (07) | DRG 770 ==
LOC: YASAS 12:25 → Y3N 17:50 → Y6N 18:02
PROVIDERS: ADMIT Surgery; ATTEND Surgery
PROC: HZ2ZZZZ Detoxification Services for Substance Abuse Treatment (ICD-10-PCS; principal; 2018-08-25)
DX: F10.230 Alcohol dependence with withdrawal, uncomplicated (principal); F11.23 Opioid dependence with withdrawal; F14.20 Cocaine dependence, uncomplicated; F17.210 Nicotine dependence, cigarettes, uncomplicated; F51.05 Insomnia due to other mental disorder; L03.114 Cellulitis of left upper limb; L03.113 Cellulitis of right upper limb; L03.116 Cellulitis of left lower limb; L03.115 Cellulitis of right lower limb; R63.6 Underweight; Z68.1 Body mass index [BMI] 19.9 or less, adult; Z90.710 Acquired absence of both cervix and uterus; Z96.642 Presence of left artificial hip joint; Z98.890 Other specified postprocedural states
CPT/HCPCS: 36415; 80053; 81025; 85027; 86593; J0735

== ENCOUNTER 2019-02-25 11:29 | Inpatient (IN) | payer OTHER ==
[2019-02-25 12:52] VITALS: BMI 18.4
--- NOTE | 2019-02-25 15:42 | HP ---
COWS - Scale Resting Pulse: 0= [place] 80 or Below Sweatin= Chills/Flushing Restless Observation: 1= Difficult to Sit Still Pupil Size: 0= Normal to Room Light Bone or Joint Aches: 4=Acute Joint/Muscle Pain Runny Nose/ Eye Tearin= Nasal Congestion GI Upset > 30mins: 1= Stomach Cramp Tremor Observation: 0= None Yawning Observation: 0= None Anxiety or Irritability: 2=Irritable/Anxious Goose Flesh Skin: 0=Smooth Skin COWS Score: 10 CIWA Score Nausea/Vomitin-Mild Nausea/No Vomiting Muscle Tremors: None Anxiety: 3 Agitation: 2 Paroxysmal Sweats: No Perspiration Orientation: 0-Oriented Tacttile Disturbances: 0-None Auditory Disturbances: 0-None Visual Disturbances: 0-None Headache: 0-None Present CIWA-Ar Total Score: 6 - Admission Criteria [facility]ASAS Guidelines: Admission for Medically Managed Detox: Requires at least one of the followin. CIWA greater than 12 2. Seizures within the past 24 hours 3. Delirium tremens within the past 24 hours 4. Hallucinations within the past 24 hours 5. Acute intervention needed for co occurring medical disorder 6. Acute intervention needed for co occurring psychiatric disorder 7. Severe withdrawal that cannot be handled at a lower level of care (continued vomiting, continued diarrhea, abnormal vital signs) requiring intravenous medication and/or fluids 8. Admitting History and Physical - Past Medical History ...LMP: 01/17/97 - Smoking History Smoking history: Current every day smoker Have you smoked in the past 12 months: Yes Aproximately how many cigarettes per day: 10 - Alcohol/Substance Use Hx Alcohol Use: Yes Admission [facility] Allergies/Adverse Reactions: Allergies Allergy/AdvReac Type Severity Reaction Status Date / Time No Known Allergies Allergy Verified 02/25/19 12:41 History of Present Illness: 53 y/o F with history of heroin, cocaine ( both DOC) and alcohol use presenting to [facility] for detox from heroin and cocaine. Pt has been using for over 30 years. Heroin Use: 3-5 bundles a day via injection with current and active infection in arms and legs. Pt works at [employer] and get clean needles from there. Last use was use this morning. 3-4 episodes of overdose with last one a year ago and pt woke on her own. Cocaine use: 4-20s a day via injection. (speedball) last use this morning. Alcohol use: couple beers every day. Denies black out or seizures. Last detox here in august 2018. Smokes 1/2 PPD for over 20 yrs. PMH: none PSYCH HX: no PSH: hysterectomy 30 yrs ago. Social Hx: lives with . 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 neuro: grossly intact Plan: OUD- methadone severe protocol open wounds- bacitracin smoking cessation counseled- pt declines patch as she isnt ready to quit - Ebola screening Have you traveled outside of the country in the last 21 days: No (N) Have you had contact with anyone from an Ebola affected area: No Do you have a fever: No Patient History - Patient Medical History Hx Anemia: No Hx Asthma: No Hx Chronic Obstructive Pulmonary Disease (COPD): No Hx Cancer: No Hx Cardiac Disorders: No Hx Congestive Heart Failure: No Hx Hypertension: No Hx Hypercholesterolemia: No Hx Pacemaker: No HX Cerebrovascular Accident: No Hx Seizures: No Hx Dementia: No Hx Diabetes: No Hx Gastrointestinal Disorders: No Hx Liver Disease: No Hx Genitourinary Disorders: No Hx Sexually Transmitted Disorders: No Hx Renal Disease (ESRD): No Hx Thyroid Disease: No Hx Human Immunodeficiency Virus (HIV): No (08/02 negative) Hx Hepatitis C: Yes (treated) Hx Depression: Yes (anxiety,insomnia) Hx Suicide Attempt: Yes (drug over dose) Hx Bipolar Disorder: No Hx Schizophrenia: No - Patient Surgical History Past Surgical History: Yes Hx Neurologic Surgery: No Hx Cataract Extraction: No Hx Cardiac Surgery: No Hx Lung Surgery: No Hx Breast Surgery: No Hx Breast Biopsy: No Hx Abdominal Surgery: No Hx Appendectomy: No Hx Cholecystectomy: No Hx Genitourinary Surgery: No Hx Section: No Hx Orthopedic Surgery: Yes (s/p left hip replacement) Hx Hysterectomy: Yes (age 31 cancer of cervix ) Other Surgical History: bilateral arthroscopy both knees Anesthesia Reaction: No - PPD History Date: 08/27/18 Results: negative - Reproductive History Last Menstrual Period: 01/17/97 - Smoking Cessation Smoking history: Current every day smoker Have you smoked in the past 12 months: Yes Aproximately how many cigarettes per day: 10 Hx Chewing Tobacco Use: No Initiated information on smoking cessation: Yes 'Breaking Loose' booklet given: 02/25/19 - Substances abused Heroin Substance route: Injection Frequency: Daily Amount used: 2-3 bundles Age of first use: 15 Date of last use: 02/25/19 Cocaine Substance route: Injection Frequency: Daily Amount used: $120 Age of first use: 15 Date of last use: 02/25/19 Alcohol Substance route: Oral Frequency: 3-6 times per week Amount used: (2) 12 ounces of beer daily Age of first use: 15 Date of last use: 02/24/19 Admission Physical Exam [facility] - Vital Signs Vital Signs: Vital Signs - 24 hr 02/25/19 12:40 Temperature 97.5 F L Pulse Rate 71 Respiratory 16 Rate Blood Pressure 133/75 Cleared for Admission [facility] - Detox or Rehab [facility] Level of Care: Medically Supervised Breathalyzer - Breathalyzer Breathalyzer: 0 Urine Drug Screen - Test Device Lot number: [id number] Expiration date: 10/15/20 - Control Is test valid?: Yes - Results Drug screen NEGATIVE: No Urine drug screen results: ROBYN-Cocaine, FEN-Fentanyl, MOP-Opiates Inpatient Rehab Admission - Rehab Decision to Admit Inpatient rehab admission?: No
[2019-02-25] MEDS ORDERED: NALOXONE HCL 0.4 MG/ML VIAL IM PRN (15:55)
[2019-02-25] MEDS ORDERED: hydrOXYzine PAMOATE 25 MG CAPSULE (FP) PO PRN (15:55)
[2019-02-25] MEDS ORDERED: BISMUTH SUBSALICYLATE 524 MG/30 ML UD PO PRN (15:55)
[2019-02-25] MEDS ORDERED: cloNIDine HCL 0.1 MG TABLET PO PRN (15:55)
[2019-02-25] MEDS ORDERED: IBUPROFEN 400 MG TABLET (FP) PO PRN (15:55)
[2019-02-25] MEDS ORDERED: MENTHOL/PHENOL 1 EACH UD MM PRN (15:55)
[2019-02-25] MEDS ORDERED: ACETAMINOPHEN 325 MG TABLET (FP) PO PRN ×2 (15:55)
[2019-02-25] MEDS ORDERED: MAGNESIUM HYDROX 2400MG/30ML ORAL SUSPENSION 30 ML CUP PO PRN (15:55)
[2019-02-25] MEDS ORDERED: MAG HYDROX/AL HYDROX/SIMETH 30 ML UNIT-DOSE CUP PO PRN (15:55)
[2019-02-25] MEDS ORDERED: MAGNESIUM CITRATE 300 ML BOTTLE PO PRN (15:55)
--- NOTE | 2019-02-25 16:04 | PN ---
Teaching Attending Note Name of Resident: Elsa John ATTENDING PHYSICIAN STATEMENT I saw and evaluated the patient. I reviewed the resident's note and discussed the case with the resident. I agree with the resident's findings and plan as documented. SUBJECTIVE: Agree with subjective finding OBJECTIVE: Agree with objective finding ASSESSMENT AND PLAN: Agree with admission for heroin detox. Dr. Wen
[2019-02-25] MEDS ORDERED: METHADONE HCL 10 MG TABLET (FOR DETOX USE ONLY) PO ONE (17:00)
[2019-02-25] MEDS: THIAMINE HCL 100 MG TABLET (FP) PO SCH (23:10)
[2019-02-26] MEDS ORDERED: METHADONE HCL 5 MG TABLET (FOR DETOX USE ONLY) ONE (09:16)
[2019-02-26] MEDS ORDERED: METHADONE HCL 10 MG TABLET (FOR DETOX USE ONLY) ONE (09:16)
[2019-02-26] MEDS ORDERED: cloNIDine HCL 0.1 MG TABLET PO PRN (09:38)
--- NOTE | 2019-02-26 09:41 | PN ---
[facility] CIWA - CIWA Score Nausea/Vomitin-Mild Nausea/No Vomiting Muscle Tremors: 2 Anxiety: 2 Agitation: 2 Paroxysmal Sweats: 1-Minimal Palms Moist Orientation: 0-Oriented Tacttile Disturbances: 0-None Auditory Disturbances: 0-None Visual Disturbances: 0-None Headache: 2-Mild CIWA-Ar Total Score: 10 S COWS - Scale Resting Pulse: 1= [place] 81-100 Sweatin= Chills/Flushing Restless Observation: 0= Sits Still Pupil Size: 1= Pupils >than Normal Bone or Joint Aches: 0= None Runny Nose/ Eye Tearin= None GI Upset > 30mins: 2= Nausea/Diarrhea Tremor Observation of Outstretched Hands: 2= Slight Tremor Visible Yawning Observation: 0= None Anxiety or Irritability: 0= None Goose Flesh Skin: 3=Piloerection COWS Score: 10 [facility] Progress Note (SOAP) Subjective: 53 years old female admitted on 02/25/19 for alcohol and opiate withdrawal sx management treated with klonopin prn and methadone detox regimen feeling tired prefers resting on bed today sleeping in bed easy to be aroused good eye contact speech clearly Objective: 02/26/19 09:44 Vital Signs Temperature 98 F 02/26/19 06:23 Pulse Rate 83 02/26/19 06:23 Respiratory Rate 18 02/26/19 06:30 Blood Pressure 150/92 02/26/19 06:23 O2 Sat by Pulse Oximetry (%) 02/26/19 09:44 lab pending clonidine 0.1mg po q6h prn for hypertension Assessment: 02/26/19 09:44 alcohol and opiate withdrawal Plan: klonopin prn and methadone regiment
[2019-02-26 09:59] LABS: HEMATOCRIT 34.2 % (32.4-45.2); HEMOGLOBIN 11.4 GM/dL (10.7-15.3); MCH 29.7 pg (25.7-33.7); MCHC 33.5 g/dl (32.0-36.0); MEAN CELL VOLUME 88.7 fl (80-96); MEAN PLT VOLUME 7.7 fl (7.5-11.1); PLATELET COUNT 284 K/MM3 (134-434); RBC 3.85 M/mm3 (3.60-5.2); RDW 13.5 % (11.6-15.6); WHITE BLOOD COUNT 4.9 K/mm3 (4.0-10.0)
[2019-02-26] MEDS ORDERED: METHADONE (DETOX) 20 MG, METHADONE (DETOX) 5 MG PO ONE (10:00)
[2019-02-26 10:11] LABS: BILIRUBIN,TOTAL 0.4 mg/dL (0.2-1); BLOOD UREA NITROGEN 19.4 mg/dL (7-18); CALCIUM 8.7 mg/dL (8.5-10.1); CREATININE 0.7 mg/dL (0.55-1.3); POTASSIUM 4.1 mmol/L (3.5-5.1); TOT PROT 6.5 g/dl (6.4-8.2)
[2019-02-26] MEDS: PRENATAL VITAMINS W/ FOLIC ACID TABLET (FP) PO SCH (10:32)
[2019-02-26] MEDS: BACITRACIN 15 GM TUBE TOPICAL OINTMENT TP SCH (10:32)
[2019-02-26] MEDS: METHOCARBAMOL 500 MG TABLET PO PRN (10:35)
[2019-02-26] MEDS: clonazePAM 0.5 MG TABLET PO PRN ×2 (10:35→22:05)
[2019-02-26] MEDS: THIAMINE HCL 100 MG TABLET (FP) PO SCH (22:05)
[2019-02-27] MEDS ORDERED: METHADONE HCL 10 MG TABLET (FOR DETOX USE ONLY) PO ONE (10:00)
[2019-02-27] MEDS: BACITRACIN 15 GM TUBE TOPICAL OINTMENT TP SCH (10:37)
[2019-02-27] MEDS: PRENATAL VITAMINS W/ FOLIC ACID TABLET (FP) PO SCH (10:37)
[2019-02-27] MEDS: clonazePAM 0.5 MG TABLET PO PRN ×3 (10:39→22:33)
--- NOTE | 2019-02-27 12:41 | CONSULT ---
[facility] Psychiatric Consult - Data Date of interview: 02/27/19 Admission source: [facility] Identifying data: Readmission to [facility] for this 53 y/o female self -referred for detoxification. MILY issues : heroin, cocaine, alcohol, nicotine. Interviewed at [address] [place] [address] in the presence of aircraft load controller, vice president of nursing Hyacinth Rosales. Patient is , a mother of one (lost two sons to violent circumstances : motorcycle accident and homicide), domiciled and currently employed ([employer] in [facility]). Substance Abuse History: Discussed with the patient. Details in current [facility] report as follows : Smoking history: Current every day smoker. Have you smoked in the past 12 months: Yes. Aproximately how many cigarettes per day: 10. Hx Chewing Tobacco Use: No. Initiated information on smoking cessation: Yes. ' Breaking Loose' booklet given: 02/25/19. - Substances abused. Heroin. Substance route: Injection. Frequency: Daily. Amount used: 2-3 bundles. Age of first use: 15. Date of last use: 02/25/19. Cocaine. Substance route: Injection. Frequency: Daily. Amount used: $120. Age of first use: 15. Date of last use: 02/25/19. Alcohol. Substance route: Oral. Frequency: 3-6 times per week. Amount used: (2) 12 ounces of beer daily. Age of first use: 15. Date of last use: 02/24/19 Medical History: Medical profile is remarkable for cachexia, hepatitis C ( treated), bilateral arthroscopic surgery (both knees), antecedent of left knee replacement and distant history of hysterectomy (cancer of cervix at age 31). Psychiatric History: Patient admits to a remote history of psychiatric hospitalizations (years ago). She has received psychiatric care at [facility] ([place]) + [facility] ([facility]). Diagnosed with Bipolar Disorder. Ms Dejesus reports treatment maintenance with seroquel 150 mg/tid + ambien 10 mg/hs. Not currently affiliated with [facility]PD care. Patient states that her psychiatrist has relocated to [place]. Patient used to see the psychiatrist at her job site (she is an employee of a [employer]). She reports a remote history of one suicide attempt via overdose with drugs. Physical/Sexual Abuse/Trauma History: Patient declines to discuss this domain. Additional Comment: Urine drug screen results: AVE-Cocaine, FEN-Fentanyl, MOP- Opiates. Noted. Mental Status Exam - Mental Status Exam Alert and Oriented to: Time, Place, Person Cognitive Function: Good Patient Appearance: Unkempt, Disheveled (thin, frail habitus) Mood: Nervous, Anxious Affect: Mood Congruent, Labile Patient Behavior: Restless, Fatigued, Talkative, Cooperative Speech Pattern: Clear Voice Loudness: Normal Thought Process: Goal Oriented Thought Disorder: Not Present Hallucinations: Denies Suicidal Ideation: Denies Homicidal Ideation: Denies Insight/Judgement: Poor Sleep: Poorly, Difficulty falling asleep Appetite: Poor, Weight loss Gait/Station: Normal Psychiatric Findings - Problem List ([place] 1, 2,3) (1) Alcohol dependence with uncomplicated withdrawal Status: Acute (2) Opioid dependence with withdrawal Status: Acute (3) Cocaine dependence Status: Chronic Qualifiers: Substance use status: uncomplicated Qualified Code(s): F14.20 - Cocaine dependence, uncomplicated (4) Nicotine dependence Status: Acute Qualifiers: Nicotine product type: cigarettes Substance use status: in withdrawal Qualified Code(s): F17.213 - Nicotine dependence, cigarettes, with withdrawal (5) Substance induced mood disorder Status: Suspected (6) History of bipolar disorder Status: Chronic (7) Non-compliance Status: Chronic (8) Insomnia Status: Chronic - Initial Treatment Plan Initial Treatment Plan: Psychoeducation. Sleep hygiene. Detoxification. Support. Resumed : seroquel 100 mg po hs. Side effects/benefits discussed with the patient. Ms Dejesus is in agreement with this plan of care. Gave verbal consent for this treatment. Observation. Musical String Maker spoke to pharmacist at the [facility] ([phone]) : last refill for seroquel 100 mg/hs (30 tablets) was picked up on 10/08/18 (Dr Gibbons).
--- NOTE | 2019-02-27 17:06 | PN ---
[facility] CIWA - CIWA Score Nausea/Vomitin-Mild Nausea/No Vomiting Muscle Tremors: 2 Anxiety: 2 Agitation: 2 Paroxysmal Sweats: 2 Orientation: 0-Oriented Tacttile Disturbances: 2-Mild Itch/Numbness/Burn Auditory Disturbances: 0-None Visual Disturbances: 0-None Headache: 0-None Present CIWA-Ar Total Score: 11 BHS COWS - Scale Resting Pulse: 1= ID [id number] Sweatin=Flushed/Facial Moisture Restless Observation: 1= Difficult to Sit Still Pupil Size: 1= Pupils >than Normal Bone or Joint Aches: 1= Mild Discomfort Runny Nose/ Eye Tearin= None GI Upset > 30mins: 1= Stomach Cramp Tremor Observation of Outstretched Hands: 1= Tremor [place], Not Seen Yawning Observation: 0= None Anxiety or Irritability: 2=Irritable/Anxious Goose Flesh Skin: 0=Smooth Skin COWS Score: 10 S Progress Note (SOAP) Subjective: interrupted sleep, sweats, shakes , irritable Objective: 02/27/19 17:08 Vital Signs Temperature 98.5 F 02/27/19 16:00 Pulse Rate 97 H 02/27/19 16:00 Respiratory Rate 18 02/27/19 16:00 Blood Pressure 143/89 02/27/19 16:00 O2 Sat by Pulse Oximetry (%) Laboratory Tests 02/26/19 02/26/19 02/26/19 08:00 08:00 08:00 WBC 4.9 RBC 3.85 Hgb 11.4 Hct 34.2 MCV 88.7 MCH 29.7 MCHC 33.5 RDW 13.5 Plt Count 284 D MPV 7.7 Sodium 141 Potassium 4.1 Chloride 107 Carbon Dioxide 29 Anion Gap 5 L BUN 19.4 H Creatinine 0.7 Est GFR (CKD-EPI)AfAm 114.65 Est GFR (CKD-EPI)NonAf 98.92 Random Glucose 120 H Calcium 8.7 Total Bilirubin 0.4 AST 16 ALT 20 Alkaline Phosphatase 87 Total Protein 6.5 Albumin 3.0 L RPR Titer Nonreactive pt lying in bed aox3 Assessment: 02/27/19 17:09 withdr bipolar d/o - pysch consult appreciated awal sx's Plan: cont. detox increase fluids
[2019-02-27] MEDS: THIAMINE HCL 100 MG TABLET (FP) PO SCH (22:33)
[2019-02-27] MEDS: MELATONIN 5 MG TABLETS PO PRN (22:33)
[2019-02-27] MEDS ORDERED: QUEtiapine FUMARATE 100 MG TABLET (FP) PO ONE (23:05)
[2019-02-28] MEDS ORDERED: METHADONE HCL 5 MG TABLET (FOR DETOX USE ONLY) ONE (09:47)
[2019-02-28] MEDS ORDERED: METHADONE HCL 10 MG TABLET (FOR DETOX USE ONLY) ONE (09:47)
[2019-02-28] MEDS ORDERED: METHADONE (DETOX) 10 MG, METHADONE (DETOX) 5 MG PO ONE (10:00)
[2019-02-28] MEDS: PRENATAL VITAMINS W/ FOLIC ACID TABLET (FP) PO SCH (10:55)
[2019-02-28] MEDS: BACITRACIN 15 GM TUBE TOPICAL OINTMENT TP SCH (10:56)
[2019-02-28] MEDS: clonazePAM 0.5 MG TABLET PO PRN (10:57)
--- NOTE | 2019-02-28 13:08 | PN ---
S CIWA - CIWA Score Nausea/Vomitin-No Nausea/No Vomiting Muscle Tremors: None Anxiety: 2 Agitation: 0-Normal Activity Paroxysmal Sweats: 2 Orientation: 0-Oriented Tacttile Disturbances: 0-None Auditory Disturbances: 0-None Visual Disturbances: 0-None Headache: 2-Mild CIWA-Ar Total Score: 6 BHS COWS - Scale Resting Pulse: 1= [place] [id number] Sweatin= Chills/Flushing Restless Observation: 1= Difficult to Sit Still Pupil Size: 0= Normal to Room Light Bone or Joint Aches: 1= Mild Discomfort Runny Nose/ Eye Tearin= None GI Upset > 30mins: 0= None Tremor Observation of Outstretched Hands: 0= None Yawning Observation: 1= 1-2x During Session Anxiety or Irritability: 2=Irritable/Anxious Goose Flesh Skin: 0=Smooth Skin COWS Score: 7 S Progress Note (SOAP) Subjective: c/o mild muscle discomfort, sweats, anxiety, and irritability. Objective: 02/28/19 13:07 Vital Signs 02/28/19 02/28/19 06:19 09:22 Temperature 97.6 F 97.1 F L Pulse Rate 70 108 H Respiratory 16 18 Rate Blood Pressure 128/72 137/91 Laboratory Last Values WBC 4.9 K/mm3 (4.0-10.0) 02/26/19 08:00 RBC 3.85 M/mm3 (3.60-5.2) 02/26/19 08:00 Hgb 11.4 GM/dL (10.7-15.3) 02/26/19 08:00 Hct 34.2 % (32.4-45.2) 02/26/19 08:00 MCV 88.7 fl (80-96) 02/26/19 08:00 MCH 29.7 pg (25.7-33.7) 02/26/19 08:00 MCHC 33.5 g/dl (32.0-36.0) 02/26/19 08:00 RDW 13.5 % (11.6-15.6) 02/26/19 08:00 Plt Count 284 K/MM3 (134-434) D 02/26/19 08:00 MPV 7.7 fl (7.5-11.1) 02/26/19 08:00 Sodium 141 mmol/L (136-145) 02/26/19 08:00 Potassium 4.1 mmol/L (3.5-5.1) 02/26/19 08:00 Chloride 107 mmol/L (98-107) 02/26/19 08:00 Carbon Dioxide 29 mmol/L (21-32) 02/26/19 08:00 Anion Gap 5 MMOL/L (8-16) L 02/26/19 08:00 BUN 19.4 mg/dL (7-18) H 02/26/19 08:00 Creatinine 0.7 mg/dL (0.55-1.3) 02/26/19 08:00 Est GFR (CKD-EPI)AfAm 114.65 02/26/19 08:00 Est GFR (CKD-EPI)NonAf 98.92 02/26/19 08:00 Random Glucose 120 mg/dL (74-106) H 02/26/19 08:00 Calcium 8.7 mg/dL (8.5-10.1) 02/26/19 08:00 Total Bilirubin 0.4 mg/dL (0.2-1) 02/26/19 08:00 AST 16 U/L (15-37) 02/26/19 08:00 ALT 20 U/L (13-61) 02/26/19 08:00 Alkaline Phosphatase 87 U/L (45-117) 02/26/19 08:00 Total Protein 6.5 g/dl (6.4-8.2) 02/26/19 08:00 Albumin 3.0 g/dl (3.4-5.0) L 02/26/19 08:00 RPR Titer Nonreactive (NONREACTIVE) 02/26/19 08:00 Labs noted. Assessment: 02/28/19 13:08 AOX3, in no acute respiratory distress. Full ROM, ambulating in the unit. Withdrawal symptoms. Plan: continue detox.
--- NOTE | 2019-02-28 14:36 | PN ---
[facility] Progress Note Note: Psychiatry Attending's note : Called by nurse. Reason : Patient is acting out. She is requesting daytime dose of seroquel. Permit Review Assistant re-contacted [facility] at [phone]. Pharmacist confirms last refill for seroquel was on 10/08/18. Dose reported as 100 mg po hs (from Dr Gibbons). Plan : Will resume seroquel 50 mg po daily (first dose NOW). Continue seroquel [address] Gilliam will follow. Patient was made aware of side effects/benefits of the drug.
[2019-02-28] MEDS: QUEtiapine FUMARATE 50 MG TABLET PO SCH (15:20)
[2019-02-28] MEDS ORDERED: QUEtiapine FUMARATE 100 MG TABLET (FP) PO SCH (22:00)
[2019-02-28] MEDS: THIAMINE HCL 100 MG TABLET (FP) PO SCH (22:20)
[2019-02-28] MEDS: MELATONIN 5 MG TABLETS PO PRN (22:21)
[2019-02-28] MEDS: METHOCARBAMOL 500 MG TABLET PO PRN (22:21)
[2019-03-01 09:23] VITALS: BP 128/89; PULSE 99; TEMP 97.7
[2019-03-01] MEDS: BACITRACIN 15 GM TUBE TOPICAL OINTMENT TP SCH (09:58)
[2019-03-01] MEDS: PRENATAL VITAMINS W/ FOLIC ACID TABLET (FP) PO SCH (09:59)
[2019-03-01] MEDS: QUEtiapine FUMARATE 50 MG TABLET PO SCH (09:59)
[2019-03-01] MEDS ORDERED: METHADONE HCL 10 MG TABLET (FOR DETOX USE ONLY) PO ONE (10:00)
--- NOTE | 2019-03-01 14:44 | DS ---
[facility] Detox Discharge Summary Admission Date: 02/25/19 Discharge Date: 03/01/19 - History Present History: Alcohol Dependence, Opioid Dependence Additional Comments: 53 years old female admitted on 02/25/19 for alcohol and opiate withdrawal sx management treated with klonopin prn and methadone detox regimen patient tolerated well alert oriented x 3 respiratory clear lung bilaterally on auscultation abdomen soft no rebound tenderness skin warm and dry - Physical Exam Results Vital Signs: Vital Signs Temperature 97.7 F 03/01/19 09:22 Pulse Rate 99 H 03/01/19 09:22 Respiratory Rate 18 03/01/19 09:22 Blood Pressure 128/89 03/01/19 09:22 O2 Sat by Pulse Oximetry (%) Pertinent Admission Physical Exam Findings: alcohol and opiate withdrawal sx Laboratory Last Values WBC 4.9 K/mm3 (4.0-10.0) 02/26/19 08:00 RBC 3.85 M/mm3 (3.60-5.2) 02/26/19 08:00 Hgb 11.4 GM/dL (10.7-15.3) 02/26/19 08:00 Hct 34.2 % (32.4-45.2) 02/26/19 08:00 MCV 88.7 fl (80-96) 02/26/19 08:00 MCH 29.7 pg (25.7-33.7) 02/26/19 08:00 MCHC 33.5 g/dl (32.0-36.0) 02/26/19 08:00 RDW 13.5 % (11.6-15.6) 02/26/19 08:00 Plt Count 284 K/MM3 (134-434) D 02/26/19 08:00 MPV 7.7 fl (7.5-11.1) 02/26/19 08:00 Sodium 141 mmol/L (136-145) 02/26/19 08:00 Potassium 4.1 mmol/L (3.5-5.1) 02/26/19 08:00 Chloride 107 mmol/L (98-107) 02/26/19 08:00 Carbon Dioxide 29 mmol/L (21-32) 02/26/19 08:00 Anion Gap 5 MMOL/L (8-16) L 02/26/19 08:00 BUN 19.4 mg/dL (7-18) H 02/26/19 08:00 Creatinine 0.7 mg/dL (0.55-1.3) 02/26/19 08:00 Est GFR (CKD-EPI)AfAm 114.65 02/26/19 08:00 Est GFR (CKD-EPI)NonAf 98.92 02/26/19 08:00 Random Glucose 120 mg/dL (74-106) H 02/26/19 08:00 Calcium 8.7 mg/dL (8.5-10.1) 02/26/19 08:00 Total Bilirubin 0.4 mg/dL (0.2-1) 02/26/19 08:00 AST 16 U/L (15-37) 02/26/19 08:00 ALT 20 U/L (13-61) 02/26/19 08:00 Alkaline Phosphatase 87 U/L (45-117) 02/26/19 08:00 Total Protein 6.5 g/dl (6.4-8.2) 02/26/19 08:00 Albumin 3.0 g/dl (3.4-5.0) L 02/26/19 08:00 RPR Titer Nonreactive (NONREACTIVE) 02/26/19 08:00 lab noted - Treatment Hospital Course: Detox Protocol Followed, Detoxed Safely, Responded well, Discharged Condition Good, Rehab Referral Accepted Patient has Accepted a Rehab Referral to: [facility] - Medication Discharge Medications: Ambulatory Orders Zolpidem Tartrate [Ambien] 10 mg PO HS 07/23/17 Quetiapine Fumarate "Xr" [Seroquel XR] 150 mg PO TID 08/25/18 Naloxone HCl [Narcan] 4 mg NS ASDIR PRN #1 spray 02/26/19 - Diagnosis (1) Opioid dependence with withdrawal Status: Acute (2) Weight loss Status: Chronic (3) Nicotine dependence Status: Acute Qualifiers: Nicotine product type: cigarettes Substance use status: in withdrawal Qualified Code(s): F17.213 - Nicotine dependence, cigarettes, with withdrawal (4) Substance induced mood disorder Status: Suspected (5) Alcohol dependence with uncomplicated withdrawal Status: Acute - AMA Did Patient Leave Against Medical Advice: No CIWA Score - CIWA Score Nausea/Vomitin-No Nausea/No Vomiting Muscle Tremors: None Anxiety: 1-Mildly Anxious Agitation: 0-Normal Activity Paroxysmal Sweats: No Perspiration Orientation: 0-Oriented Tacttile Disturbances: 0-None Auditory Disturbances: 0-None Visual Disturbances: 0-None Headache: 2-Mild CIWA-Ar Total Score: 3 COWS (PN) - Opiate Withdrawal Resting Pulse: 1= ID [id number] Sweatin= No chills or Flushing Restless Observation: 0= Sits Still Pupil Size: 0= Normal to Room Light Bone or Joint Aches: 0= None Runny Nose/ Eye Tearin= None GI Upset > 30mins: 0= None Tremor Observation of Outstretched Hands: 1= Tremor [place], Not Seen Yawning Observation: 0= None Anxiety or Irritability: 0= None Goose Flesh Skin: 0=Smooth Skin COWS Score: 2
[2019-03-02] MEDS ORDERED: METHADONE HCL 5 MG TABLET (FOR DETOX USE ONLY) PO ONE (06:00)
--- NOTE | 2019-03-02 14:42 | PN ---
S Progress Note Note: Psychiatry Attending's note (follow-up) : Patient not found on the unit. For psychiatric follow-up. Pinking Machine Operator was off service on 03/01/19. Records reviewed. Ms Dejesus was discharged on 03/01/19. See counselor's notes for details.
== END 2019-03-01 11:03 | disposition home or self-care (01) | DRG 773 ==
LOC: YASAS 11:29 → Y3N 16:06
PROVIDERS: ADMIT Allergy & Immunology; ATTEND Allergy & Immunology
PROC: HZ2ZZZZ Detoxification Services for Substance Abuse Treatment (ICD-10-PCS; principal; 2019-02-25)
DX: F11.23 Opioid dependence with withdrawal (principal); F10.230 Alcohol dependence with withdrawal, uncomplicated; F14.20 Cocaine dependence, uncomplicated; F17.213 Nicotine dependence, cigarettes, with withdrawal; F19.24 Other psychoactive substance dependence with psychoactive substance-induced mood disorder; F31.9 Bipolar disorder, unspecified; R63.4 Abnormal weight loss; G47.00 Insomnia, unspecified; Z85.41 Personal history of malignant neoplasm of cervix uteri; Z86.19 Personal history of other infectious and parasitic diseases; Z91.19 Patient's noncompliance with other medical treatment and regimen; Z96.652 Presence of left artificial knee joint; Z90.710 Acquired absence of both cervix and uterus
CPT/HCPCS: 36415; 80053; 85027; 86593; J0735